=== PATIENT | female | born 1995 | race Caucasian/White ===

== ENCOUNTER 2025-01-13 21:05 | Outpatient (REF) | payer BC, SELFPAY ==
[2025-01-13 22:11] LABS: HCG Qual (Urine) Negative
[2025-01-13 22:26] LABS: HCG Quant, Pregnancy < 1 mIU/mL (1-3)
== END 2025-01-13 21:06 | disposition home or self-care (01) ==
LOC: LBN 21:05
PROVIDERS: Visit Provider Physician Assistant
DX: R11.0 Nausea (principal)
CPT/HCPCS: 81025; 84702